=== PATIENT | male | born 1965 | race Caucasian/White ===

== ENCOUNTER 2017-03-11 11:02 | Observation (INO) | payer BC ==
[~2017-03-11] VITALS: Ht 180.3 cm; Wt 107.0 kg
[2017-03-11] MEDS ORDERED: MOBIC PO (11:22)
[2017-03-11] MEDS ORDERED: LISI-725 PO (11:22)
[2017-03-11] MEDS ORDERED: ONDANSETRON INJ 2 MG/ML 2 ML VIAL IV STA (11:38)
[2017-03-11] MEDS ORDERED: SODIUM CHLORIDE 0.9% 1000ML 1,000 ML IV STA (11:38)
--- NOTE | 2017-03-11 11:49 | DIAGNOSTIC IMAGING REPORT ---
CHEST ONE VIEW PORTABLE CLINICAL HISTORY: CHEST PAIN COMPARISON STUDY: No previous studies for comparison. FINDINGS: Note is made of mild to moderate elevation of the right hemidiaphragm. No pneumothorax or pleural effusion is noted. There are suspected cervical ribs. There is borderline cardiomegaly without evidence of pulmonary edema. No consolidation is identified. IMPRESSION: 1. No acute cardiopulmonary findings. 2. Borderline cardiomegaly. 3. Mild to moderate elevation of the right hemidiaphragm. Electronically signed by: Bunny Costa M.D. 03/11/2017 11:48 AM Dictated Date/Time: 03/11/2017 11:47 AM
[2017-03-11 11:52] LABS: BASO % 0.2 %; BASO ABS # 0.02 K/uL (0-0.2); EOS % 0.4 %; EOS ABS # 0.03 K/uL (0-0.5); HEMATOCRIT 39.7 % (42-52); HEMOGLOBIN 13.8 g/dL (14.0-18.0); IG# 0.03 K/uL (0.00-0.02); LYMPH % 15.5 %; LYMPH ABS # 1.26 K/uL (1.2-3.4); MEAN CELL VOLUME 88.4 fL (80-100); MEAN CORPUSCULAR HEMOGLOBIN 30.7 pg (25-34); MEAN CORPUSCULAR HGB CONC 34.8 g/dl (32-36); MEAN PLATELET VOLUME 10.2 fL (7.4-10.4); MONO % 7.6 %; MONO ABS # 0.62 K/uL (0.11-0.59); NEUT % 75.9 %; NEUT ABS # 6.15 K/uL (1.4-6.5); PLATELET COUNT 270 K/uL (130-400); RED CELL DISTRIBUTION WIDTH CV 13.3 % (11.5-14.5); RED CELL DISTRIBUTION WIDTH SD 43.1 fL (36.4-46.3); WHITE BLOOD COUNT 8.11 K/uL (4.8-10.8)
--- NOTE | 2017-03-11 11:54 | EMERGENCY ROOM VISIT NOTE ---
History Report prepared by Ryan: Jean-Paul Pate Under the Supervision of: Dr. Valeriano Dickey M.D. First contact with patient: 11:27 Chief Complaint: VOMITING Stated Complaint: PASSED OUT,VOMITING,CLAMMY,SWEATING Nursing Triage Summary: pt reports he was doing laundry stood up passed out and had some sort of seizure. pt reports when he awoke from passing out he was flailing around brojke out in sweats did not bite tongue no incontinence. was not witnessed. pt reports no hx of seizures. started vomiting after waking. reports head is in "fog" History of Present Illness The patient is a 52 year old male who presents to the Emergency Room with complaints of a resolved syncopal episode that occurred prior to arrival. The patient states he was watching TV and got up to put the blanket away. He reports he became dizzy and lightheaded. The patient notes he fell over and had a seizure like episode. He states he does not remember much of what happen during the spell, and his was in the other room. The patient reports he woke up with sweats, went upstairs, and vomited multiple times. He notes his work schedule fluctuates from night to morning, but he did sleep last night. The patient states he felt normal this morning. He notes he had a similar situation a few months ago, but he did not lose consciousness like today. He reports he has a history of hypertension and takes Lisinopril. The patient notes his dad had an PA. He denies chest pain, fevers, palpitations, losing blood, biting tongue, being incontinent of his urine or stool, cough, using street drugs, smoking, alcohol use, a history of diabetes, a history of seizures , a history of blood clots, and a history of cancer. Source of History: patient Onset: prior to arrival Position: other (global) Quality: other (syncopal episode) Timing: resolved Associated Symptoms: + LOC, No fevers, No cough, No chest pain Note: Denies: palpitations, losing blood, biting tongue, being incontinent of urine or stool, Review of Systems See HPI for pertinent positives & negatives. A total of 10 systems reviewed and were otherwise negative. Past Medical & Surgical Medical Problems: (1) HTN (hypertension) (2) Syncope Old medical records were reviewed. Nurse's notes were reviewed and I agree with. Family History FH: myocardial infarction Social History Smoking Status: Never Smoker Smokeless Tobacco Use: No Alcohol Use: none Drug Use: none Marital Status: Housing Status: lives with significant other Occupation Status: employed Current/Historical Medications Scheduled Lisinopril (Zestril), 20 MG PO HS Scheduled PRN [Mobic ], 5 MG PO UD PRN for Pain Allergies Coded Allergies: Sulfa Antibiotics (Unverified Allergy, Intermediate, STOMACH PAIN, 03/11/17) Physical Exam Vital Signs Date Time Temp Pulse Resp B/P (MAP) Pulse Ox O2 Delivery O2 Flow Rate FiO2 03/11/17 12:51 55 14 159/96 99 Room Air 03/11/17 11:31 99 Room Air 03/11/17 11:17 52 03/11/17 11:08 36.3 55 18 141/88 99 Room Air Physical Exam General: Non-ill appearing middle aged male in no acute distress. HEENT: Normal cephalic atraumatic. Pupils are equal round and reactive to light. Extraocular movements are intact. Oropharynx is pink with moist mucous membranes. No swelling of the mouth lips or tongue. Neck: Supple with a midline trachea. No meningeal signs or stiffness, no JVD or bruits. No Stridor. Chest: Clear to auscultation bilaterally. No wheezes or rhonchi. No increased work of breathing. Heart: Bradycardic in 50s which is baseline for him. Regular Rhythm. Abdomen: Soft nontender, nondistended without rebound guarding or rigidity. Extremities: No cyanosis clubbing or edema. No calf tenderness or assymetry Spine/Back. Non tender to palpation. No CVA tenderness Skin: Good turgor without rashes. Neurologic exam: Cranial nerves two through 12 are intact. Motor and sensation are intact and symmetrical throughout. Medical Decision & Procedures ER Provider Diagnostic Interpretation: Radiology results as stated below per my review and radiologist interpretation: CHEST ONE VIEW PORTABLE CLINICAL HISTORY: CHEST PAIN COMPARISON STUDY: No previous studies for comparison. FINDINGS: Note is made of mild to moderate elevation of the right hemidiaphragm. No pneumothorax or pleural effusion is noted. There are suspected cervical ribs. There is borderline cardiomegaly without evidence of pulmonary edema. No consolidation is identified. IMPRESSION: 1. No acute cardiopulmonary findings. 2. Borderline cardiomegaly. 3. Mild to moderate elevation of the right hemidiaphragm. Electronically signed by: Bunny Costa M.D. 03/11/2017 11:48 AM Dictated Date/Time: 03/11/2017 11:[address] OF THE HEAD WITHOUT CONTRAST CLINICAL HISTORY: Altered mental status. Vomiting. Evaluate for acute intracranial process. COMPARISON STUDY: No previous studies for comparison. CT DOSE: 537.48 mGy.cm TECHNIQUE: Helical axial images of the head were obtained without IV contrast. Automated exposure control was utilized for the study. A dose lowering technique was utilized adhering to the principles of ALARA. FINDINGS: No acute intracranial hemorrhage, midline shift or mass effect is present. Brain volume is normal. Ventricular system is normal. The basilar cisterns are patent. There are no extra-axial collections. Snowden-white differentiation is maintained. There are no findings to suggest acute dural sinus thrombosis or acute territorial infarct. There is no calvarial fracture. Mild polypoid mucosal thickening of the left ethmoid sinuses is noted. There is trace left mastoid fluid. IMPRESSION: No acute intracranial findings. Electronically signed by: Bunny Costa M.D. 03/11/2017 12:27 PM Dictated Date/Time: 03/11/2017 12:24 PM Laboratory Results 03/11/17 11:30 Red Blood Count 4.49, Mean Corpuscular Volume 88.4, Mean Corpuscular Hemoglobin 30.7, Mean Corpuscular Hemoglobin Concent 34.8, Mean Platelet Volume 10.2, Neutrophils (%) (Auto) 75.9, Lymphocytes (%) (Auto) 15.5, Monocytes (%) (Auto) 7.6, Eosinophils (%) (Auto) 0.4, Basophils (%) (Auto) 0.2, Neutrophils # (Auto) 6.15, Lymphocytes # (Auto) 1.26, Monocytes # (Auto) 0.62, Eosinophils # (Auto) 0.03, Basophils # (Auto) 0.02 03/11/17 11:30 Test 03/11/17 11:30 03/11/17 11:45 White Blood Count 8.11 K/uL (4.8-10.8) Red Blood Count 4.49 M/uL (4.7-6.1) Hemoglobin 13.8 g/dL (14.0-18.0) Hematocrit 39.7 % (42-52) Mean Corpuscular Volume 88.4 fL (80-100) Mean Corpuscular Hemoglobin 30.7 pg (25-34) Mean Corpuscular Hemoglobin Concent 34.8 g/dl (32-36) Platelet Count 270 K/uL (130-400) Mean Platelet Volume 10.2 fL (7.4-10.4) Neutrophils (%) (Auto) 75.9 % Lymphocytes (%) (Auto) 15.5 % Monocytes (%) (Auto) 7.6 % Eosinophils (%) (Auto) 0.4 % Basophils (%) (Auto) 0.2 % Neutrophils # (Auto) 6.15 K/uL (1.4-6.5) Lymphocytes # (Auto) 1.26 K/uL (1.2-3.4) Monocytes # (Auto) 0.62 K/uL (0.11-0.59) Eosinophils # (Auto) 0.03 K/uL (0-0.5) Basophils # (Auto) 0.02 K/uL (0-0.2) RDW Standard Deviation 43.1 fL (36.4-46.3) RDW Coefficient of Variation 13.3 % (11.5-14.5) Immature Granulocyte % (Auto) 0.4 % Immature Granulocyte # (Auto) 0.03 K/uL (0.00-0.02) Anion Gap 5.0 mmol/L (3-11) Est Creatinine Clear Calc Drug Dose 107.6 ml/min Estimated GFR () 99.8 Estimated GFR (Non- 86.2 BUN/Creatinine Ratio 16.7 (10-20) Calcium Level 8.5 mg/dl (8.5-10.1) Total Bilirubin 0.4 mg/dl (0.2-1) Direct Bilirubin 0.1 mg/dl (0-0.2) Aspartate Amino Transf (AST/SGOT) 19 U/L (15-37) Alanine Aminotransferase (ALT/SGPT) 39 U/L (12-78) Alkaline Phosphatase 76 U/L (45-117) Total Creatine Kinase 103 U/L (39-308) Creatine Kinase MB 1.3 ng/ml (0.5-3.6) Creatine Kinase MB Ratio 1.3 (0-3.0) Total Protein 7.2 gm/dl (6.4-8.2) Albumin 3.8 gm/dl (3.4-5.0) Lipase 143 U/L (73-393) Thyroid Stimulating Hormone (TSH) 2.000 uIu/ml (0.300-4.500) Bedside Troponin I < 0.030 ng/ml (0-0.045) Laboratory studies as stated above per my review. Medications Administered Medications (Trade) Dose Ordered Sig/Tali Route Start Time Stop Time Status Last Admin Dose Admin Sodium Chloride 1,000 ml @ 999 mls/hr Q1H1M STAT IV 03/11/17 11:38 03/11/17 12:38 DC 03/11/17 11:46 999 MLS/HR Ondansetron HCl (Zofran Inj) 4 mg NOW STAT IV 03/11/17 11:38 03/11/17 11:41 DC 03/11/17 11:45 4 MG Sodium Chloride 1,000 ml @ 100 mls/hr Q10H IV 03/11/17 13:08 04/10/17 13:07 03/11/17 14:32 100 MLS/HR ECG Indication: vomiting Rate (beats per minute): 50 Rhythm: sinus bradycardia Findings: no acute ischemic change, no ectopy, other (normal interval ) Comparison ECG Date: no prior available Change: Patient's electrocardiogram was interpreted by me. ED Course 1129: Past medical records reviewed. The patient was evaluated in room C10, and a complete history and physical examination were performed. 1138: Ordered Zofran Inj 4mg IV, Sodium Chloride 1000 ml @ 999 mls/hr IV 1218: I reevaluated the patient. He has shown signs of relief, but still has mild discomfort. I discussed the treatment plan and test results with the patient. He verbalized agreement of the treatment plan and will be evaluated for further management and care. 1247: I discussed the patient's case with Dr. Garcia, [facility] Hospitalist. He will evaluate the patient for further evaluation and care. Medical Decision Differentials include, but are not limited to; arrhythmia, ACS, Dehydration, Seizure, Syncope, Anemia, Electrolyte or Metabolic abnormality. This patient comes in as described above. He was placed in room C10. He is here for treatment and evaluation of a possible syncopal episode. He was in his usual state of health and he got up and then was on the ground afterwards felt very sick and was nauseated. He is not sure what happened. There is no incontinence or tongue biting. No chest pain or shortness of breath. On exam, he appears comfortable is feeling much better. He does have bradycardia on the monitor was sinus bradycardia in the 50s occasionally dropping down lower in the 40s. He says his heart rate does tend to run in the 60s. IV access established with normal saline. EKG was obtained and shows sinus bradycardia but no acute ischemic changes. CAT scan of his head is unremarkable. No acute electrolyte or metabolic abnormalities. It is possible this could've been a seizure as well although it may be more of a vasovagal episode. Also it is difficult to rule out arrhythmia and I do think he needs to be admitted/ observed for further treatment and evaluation the hospital . I have consulted Dr. Garcia who saw the ER and will admit/observe him for these measures. Medication Reconcilliation Current Medication List: was personally reviewed by me Consults Time Called: 1218 Consulting Physician: Dr. Garcia, [facility] Hospitalist Returned Call: 1247 I discussed the patient's case with Dr. Garcia, [facility] Hospitalist. He will evaluate the patient for further evaluation and care. Impression Primary Impression: Syncope Additional Impression: Bradycardia Scribe Attestation The scribe's documentation has been prepared under my direction and personally reviewed by me in its entirety. I confirm that the note above accurately reflects all work, treatment, procedures, and medical decision making performed by me. Departure Information Dispostion Being Evaluated By Hospitalist Referrals No Doctor, Assigned (PCP) Patient Instructions My [facility] Problem Qualifiers
[2017-03-11 12:03] LABS: ALBUMIN 3.8 gm/dl (3.4-5.0); CALCIUM 8.5 mg/dl (8.5-10.1); POTASSIUM 4.2 mmol/L (3.5-5.1)
[2017-03-11 12:14] LABS: CKMB 1.3 ng/ml (0.5-3.6); TOTAL PROTEIN 7.2 gm/dl (6.4-8.2)
--- NOTE | 2017-03-11 12:28 | DIAGNOSTIC IMAGING REPORT ---
CT OF THE HEAD WITHOUT CONTRAST CLINICAL HISTORY: Altered mental status. Vomiting. Evaluate for acute intracranial process. COMPARISON STUDY: No previous studies for comparison. CT DOSE: 537.48 mGy.cm TECHNIQUE: Helical axial images of the head were obtained without IV contrast. Automated exposure control was utilized for the study. A dose lowering technique was utilized adhering to the principles of ALARA. FINDINGS: No acute intracranial hemorrhage, midline shift or mass effect is present. Brain volume is normal. Ventricular system is normal. The basilar cisterns are patent. There are no extra-axial collections. Snowden-white differentiation is maintained. There are no findings to suggest acute dural sinus thrombosis or acute territorial infarct. There is no calvarial fracture. Mild polypoid mucosal thickening of the left ethmoid sinuses is noted. There is trace left mastoid fluid. IMPRESSION: No acute intracranial findings. Electronically signed by: Bunny Costa M.D. 03/11/2017 12:27 PM Dictated Date/Time: 03/11/2017 12:24 PM
[2017-03-11] MEDS ORDERED: ACETAMINOPHEN 325 MG TAB PO PRN (13:15)
[2017-03-11] MEDS ORDERED: ALUMINUM/MAGNESIUM/SIMETH (MAALOX MAX) 30 ML UDC PO PRN (13:15)
[2017-03-11] MEDS ORDERED: MAGNESIUM HYDROXIDE SUSP 30 ML UDC PO PRN (13:15)
[2017-03-11] MEDS ORDERED: NITROGLYCERIN 0.4 MG SL PER TAB CHARGE SL PRN (13:15)
[2017-03-11] MEDS ORDERED: ONDANSETRON INJ 2 MG/ML 2 ML VIAL IV PRN (13:15)
--- NOTE | 2017-03-11 13:35 | History and Physical ---
History & Physical Date & Time of Service: Mar 11, 2017 at 13:25 Chief Complaint: Passed Out,Vomiting,Clammy,Sweating Primary Care Physician: Jackson Haywood D.O. History of Present Illness Source: family 52-year-old male new to our facility from the [facility]. Presents after having a syncopal episode at home. The patient states he been relatively good health recently with only some mild bifrontal headaches and some chronic low back pain for which she receives epidural injections and takes Mobic. He notices no other change in his health is stamina his bowel habits his appetite The patient was sitting at home arose from a chair to put a blanket in the closet initially upon arising he felt normal he then felt lightheaded to the point where he easily himself to the ground he recalls an event of shaking he then became diaphoretic and nauseated eventually with vomiting. The patient states that he was groggy and disoriented after the event but did not lose consciousness. His is home but in the room she upon hearing the commotion noticed he wasn't acting his normal self was brought to our emergency department where he had an evaluation including a CT head and serology which was unrevealing the only abnormality has on presentation is sinus bradycardia but maintained good blood pressure. 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 Past Medical/Surgical History Medical Problems: (1) HTN (hypertension) Status: Chronic Family History FH: myocardial infarction Social History Smoking Status: Never Smoker Smokeless Tobacco Use: No Drug Use: none Marital Status: Occupational Status: employed Immunizations History of Influenza Vaccine: No History of Tetanus Vaccine?: Yes History of Pneumococcal: No History of Hepatitis B Vaccine: Unknown Allergies Coded Allergies: Sulfa Antibiotics (Unverified Allergy, Intermediate, STOMACH PAIN, 03/11/17) Home Medications Scheduled Lisinopril (Zestril), 20 MG PO HS Scheduled PRN [Mobic ], 5 MG PO UD PRN for Pain Review of Systems ROS: well nourished well developed No double vision blurry vision No problems with speech or swallowing No palpitations, chest pain or pressure No Wheezing or breathing issues No abdominal pain diarrhea or changes in appetite or weight, did have nausea and vomiting No burning urine urine frequency or changes in color No focal joint pain or muscle pain No skin rashes or oral lesions No unusual bruising or bleeding Persistent chronic lower back pain but no numbness or loss of strength No changes in memory or confusion after the event resolved is return to complete intact mentation with during the event had a period of a few bewilderment Physical Exam Vital Signs Date Time Temp Pulse Resp B/P (MAP) Pulse Ox O2 Delivery O2 Flow Rate FiO2 03/11/17 12:51 55 14 159/96 99 Room Air 03/11/17 11:31 99 Room Air 03/11/17 11:17 52 03/11/17 11:08 36.3 55 18 141/88 99 Room Air General Appearance: WD/WN, no apparent distress Head: normocephalic, atraumatic Eyes: normal inspection, PERRL, EOMI, sclerae normal ENT: hearing grossly normal, pharynx normal Respiratory/Chest: chest non-tender, lungs clear, normal breath sounds Cardiovascular: no murmur, + bradycardia Abdomen/GI: normal bowel sounds, non tender, soft Back: no CVA tenderness, + pertinent finding (mild lower back paraspinous muscular tenderness) Extremities/Musculoskelatal: no pedal edema, normal range of motion Neurologic/Psych: alert, oriented x 3 Skin: normal color, warm/dry, no rash Diagnostics Laboratory Results Results Past 24 Hours Test 03/11/17 11:30 03/11/17 11:45 Range/Units White Blood Count 8.11 4.8-10.8 K/uL Red Blood Count 4.49 4.7-6.1 M/uL Hemoglobin 13.8 14.0-18.0 g/dL Hematocrit 39.7 42-52 % Mean Corpuscular Volume 88.4 80-100 fL Mean Corpuscular Hemoglobin 30.7 25-34 pg Mean Corpuscular Hemoglobin Concent 34.8 32-36 g/dl Platelet Count 270 130-400 K/uL Mean Platelet Volume 10.2 7.4-10.4 fL Neutrophils (%) (Auto) 75.9 % Lymphocytes (%) (Auto) 15.5 % Monocytes (%) (Auto) 7.6 % Eosinophils (%) (Auto) 0.4 % Basophils (%) (Auto) 0.2 % Neutrophils # (Auto) 6.15 1.4-6.5 K/uL Lymphocytes # (Auto) 1.26 1.2-3.4 K/uL Monocytes # (Auto) 0.62 0.11-0.59 K/uL Eosinophils # (Auto) 0.03 0-0.5 K/uL Basophils # (Auto) 0.02 0-0.2 K/uL RDW Standard Deviation 43.1 36.4-46.3 fL RDW Coefficient of Variation 13.3 11.5-14.5 % Immature Granulocyte % (Auto) 0.4 % Immature Granulocyte # (Auto) 0.03 0.00-0.02 K/uL Sodium Level 139 136-145 mmol/L Potassium Level 4.2 3.5-5.1 mmol/L Chloride Level 107 98-107 mmol/L Carbon Dioxide Level 27 21-32 mmol/L Anion Gap 5.0 3-11 mmol/L Blood Urea Nitrogen 17 7-18 mg/dl Creatinine 1.00 0.60-1.40 mg/dl Est Creatinine Clear Calc Drug Dose 107.6 ml/min Estimated GFR () 99.8 Estimated GFR (Non- 86.2 BUN/Creatinine Ratio 16.7 10-20 Random Glucose 115 70-99 mg/dl Calcium Level 8.5 8.5-10.1 mg/dl Total Bilirubin 0.4 0.2-1 mg/dl Direct Bilirubin 0.1 0-0.2 mg/dl Aspartate Amino Transf (AST/SGOT) 19 15-37 U/L Alanine Aminotransferase (ALT/SGPT) 39 12-78 U/L Alkaline Phosphatase 76 45-117 U/L Total Creatine Kinase 103 39-308 U/L Creatine Kinase MB 1.3 0.5-3.6 ng/ml Creatine Kinase MB Ratio 1.3 0-3.0 Total Protein 7.2 6.4-8.2 gm/dl Albumin 3.8 3.4-5.0 gm/dl Lipase 143 73-393 U/L Thyroid Stimulating Hormone (TSH) 2.000 0.300-4.500 uIu/ml Bedside Troponin I < 0.030 0-0.045 ng/ml Diagnostic Radiology Labs noted to be normal CXR normal (except elevated right hemidiaphragm) Normal EKG (except bradycardia and isolated inverted T-wave in lead 3) Impression Assessment and Plan 52-year-old male with unexplained syncopal episode at home and bradycardia on presentation to her ER without orthostatic hypotension Syncope. As mentioned I performed orthostatic blood pressure readings in the ER he had only a modest rise of pulse from the 50s to the 60s however blood pressure only when up as he stood up. He claims of been hydrated recently having no other recent illnesses. He is typically in the habit of taking his lisinopril at night prior to going to work. However he is off work this week and still is been taking his lisinopril at night it's unclear whether this could be affecting in the morning today and he had a little bit of more profound lower blood pressure in the time of this event nevertheless his bradycardia is not explained we will have a pending echo troponin series and Lyme titer. His TSH is checked and normal Elevated [id number] glucose we'll check a glucose in the morning and this is elevated we may consider a hemoglobin A1c test or to follow-up with his outpatient provider for further evaluation of high glucose With regard to his hypertension he is hypertensive in the ER will maintain his lisinopril keeping her on at bedtime as if it is exacerbating his symptoms will find out why he is on the monitor DVT prevention is early ambulation Level of Care Telemetry Advanced Directives Existing Advance Directive: Yes Resuscitation Status FULL RESUSCITATION VTE Prophylaxis VTE Risk Assessment Done? Y/N: Yes Risk Level: Moderate Given or contraindicated: Treatment not indicated
[2017-03-11 14:21] VITALS: BP 142/84; PULSE 51; TEMP 36.4; O2SAT 99; Ht 180.3 cm; Wt 107.0 kg
[2017-03-11] MEDS: SODIUM CHLORIDE 0.9% 1000ML 1,000 ML IV SCH (14:32)
[2017-03-11] MEDS ORDERED: IV FLUIDS COMPLETED PRN (15:00)
[2017-03-11] MEDS ORDERED: INFLUENZA ADMINISTRATION CHARGE ONE (16:00)
[2017-03-11] MEDS ORDERED: INFLUENZA VIRUS QUAD VACCINE 0.5 ML SYR IM. ONE (16:00)
--- NOTE | 2017-03-11 16:16 | ECHOCARDIOGRAM REPORT ---
*NOTICE TO RECEIVING DEMOCRAT AGENCY This information is strictly Confidential and protected under [place] law. [place] law prohibits you from making any further disclosure of this information unless further disclosure is expressly permitted by the written consent of the person to whom it pertains or is authorized by law. A general authorization for the release of medical or other information is not sufficient for this purpose. Hospital accepts no responsibility if the information is made available to any other person, INCLUDING THE PATIENT. Interpretation Summary * Name: ALOK CHAVARRIA Study Date: 03/11/2017 03:04 PM BP: 132/78 mmHg * Patient Location: C.2T\S\S242\S\2 HR: 50 * : 1965 (M/d/yyyy) Gender: Male Height: 71 in * Age: 52 yrs Ethnicity: [place] Weight: 236 lb * Ordering Physician: Andrew Garcia * Referring Physician: Self, Referred * Performed By: Sabina Zimmer RCS * * Reason For Study: Syncope * BSA: 2.3 m2 * -- Conclusions -- * The left ventricle is borderline dilated. * There is normal left ventricular wall thickness. * Left ventricular systolic function is normal. * The left atrium is borderline dilated. * Right ventricular systolic pressure is elevated at 30-40mmHg. Procedure Details * A complete two-dimensional transthoracic echocardiogram was performed (2D, M-mode, Doppler and color flow Doppler). Left Ventricle * The left ventricle is borderline dilated. * There is normal left ventricular wall thickness. * Ejection Fraction = 55-60%. * Left ventricular systolic function is normal. * The left ventricular wall motion is normal. Right Ventricle * The right ventricle is normal in size and function. * The right ventricular systolic function is normal as assessed by tricuspid annular plane systolic excursion (TAPSE) (normal >1.5 cm). Atria * The left atrium is borderline dilated. * Right atrial size is normal. Mitral Valve * The mitral valve anatomy is normal. * Significant mitral regurgitation is absent. Tricuspid Valve * The tricuspid valve is not well visualized, but is grossly normal. * There is mild tricuspid regurgitation. * Right ventricular systolic pressure is elevated at 30-40mmHg. Aortic Valve * The aortic valve is normal in structure and function. * The aortic valve is trileaflet. * No hemodynamically significant valvular aortic stenosis. * There is no significant aortic regurgitation. Great Vessels * The aortic root is normal size. Pericardium/Pleural * There is no pericardial effusion. Great Vessels * Normal inferior vena cava diameter and respiratory variation suggests normal central venous pressure. MMode 2D Measurements and Calculations IVSd 1.1 cm IVSs 1.4 cm LVIDd 5.5 cm LVIDs 3.5 cm LVPWd 1.1 cm LVPWs 1.5 cm IVS/LVPW 0.99 FS 36.3 % EDV(Teich) 145.9 ml ESV(Teich) 50.5 ml EF(Teich) 65.4 % EDV(cubed) 164.1 ml ESV(cubed) 42.5 ml EF(cubed) 74.1 % % IVS thick 30.8 % % LVPW thick 38.6 % LV mass(C)d 230.7 grams LV mass(C)dI 102.0 grams/m\S\2 LV mass(C)s 179.7 grams LV mass(C)sI 79.4 grams/m\S\2 SV(Teich) 95.4 ml SI(Teich) 42.2 ml/m\S\2 SV(cubed) 121.6 ml SI(cubed) 53.8 ml/m\S\2 Ao root diam 3.7 cm Ao root area 10.7 cm\S\2 ACS 1.7 cm LA dimension 4.1 cm asc Aorta Diam 3.2 cm LA/Ao 1.1 EDV(sp4-el) 127.0 ml ESV(sp4-el) 61.0 ml EF(sp4-el) 52.0 % EDV(sp2-el) 168.0 ml ESV(sp2-el) 82.0 ml EF(sp2-el) 51.2 % SV(sp4-el) 66.0 ml SI(sp4-el) 29.2 ml/m\S\2 SV(sp2-el) 86.0 ml SI(sp2-el) 38.0 ml/m\S\2 Doppler Measurements and Calculations MV E max sathish 104.0 cm/sec MV A max sathish 69.5 cm/sec MV E/A 1.5 MV P1/2t max sathish 119.3 cm/sec MV P1/2t 48.7 msec MVA(P1/2t) 4.5 cm\S\2 MV dec slope 717.5 cm/sec\S\2 MV dec time 0.30 sec Ao V2 max 143.7 cm/sec Ao max PG 8.3 mmHg Ao max PG (full) 3.1 mmHg LV V1 max PG 5.1 mmHg LV V1 max 113.1 cm/sec PA V2 max 125.5 cm/sec PA max PG 6.3 mmHg PI max sathish 190.2 cm/sec PI max PG 14.5 mmHg PI dec slope 179.3 cm/sec\S\2 PI P1/2t 310.7 msec TR max sathish 280.8 cm/sec
[2017-03-11 16:21] VITALS: BP 136/79; PULSE 54; TEMP 36.5; O2SAT 98
[2017-03-11] MEDS ORDERED: IBUPROFEN 800 MG TAB PO PRN (17:45)
[2017-03-11] MEDS ORDERED: NURSING VERBAL MED ORDER ONE ×2 (17:45)
[2017-03-11 19:56] VITALS: BP 130/77; PULSE 53; TEMP 37.1; O2SAT 97
[2017-03-11] MEDS ORDERED: LISINOPRIL 20 MG TAB PO SCH (21:00)
[2017-03-11 23:50] VITALS: BP 127/74; PULSE 51; TEMP 36.9; O2SAT 96
[2017-03-12] MEDS: SODIUM CHLORIDE 0.9% 1000ML 1,000 ML IV SCH ×2 (00:20→09:08)
[2017-03-12 02:59] LABS: HEMATOCRIT 36.1 % (42-52); HEMOGLOBIN 12.1 g/dL (14.0-18.0); MEAN CELL VOLUME 88.3 fL (80-100); MEAN CORPUSCULAR HEMOGLOBIN 29.6 pg (25-34); MEAN CORPUSCULAR HGB CONC 33.5 g/dl (32-36); MEAN PLATELET VOLUME 9.6 fL (7.4-10.4); PLATELET COUNT 240 K/uL (130-400); RED CELL DISTRIBUTION WIDTH CV 13.4 % (11.5-14.5); RED CELL DISTRIBUTION WIDTH SD 43.2 fL (36.4-46.3); WHITE BLOOD COUNT 6.75 K/uL (4.8-10.8)
[2017-03-12 03:20] LABS: CALCIUM 7.9 mg/dl (8.5-10.1); CREATININE 0.87 mg/dl (0.60-1.40); POTASSIUM 3.9 mmol/L (3.5-5.1)
[2017-03-12 03:35] VITALS: BP 123/75; PULSE 50; TEMP 36.7; O2SAT 96
[2017-03-12 07:40] VITALS: BP 121/79; PULSE 49; TEMP 37; O2SAT 97
--- NOTE | 2017-03-12 10:33 | Cardiology Consultation ---
Cardiology Consultation Date of Consultation: Mar 12, 2017. Requesting Physician: Ella Reason for Consultation: Syncope Pt evaluation today including: conversation w/ patient, physical exam, chart review, lab review, review of studies, review of inpatient medication list, conversation w/ attending History of Present Illness Patient is a 52-year-old gentleman without a significant past cardiac history who experienced an episode of syncope yesterday. Patient stated that he was feeling well early in the morning when he got up from a chair. He was walking across the room and returning to his chair when he suddenly felt dizzy and lightheaded. He found himself on the floor he did report a sense of tonic clonic limb movement. He was assisted by his at that point and began to experience symptoms of nausea and diffuse diaphoresis. Proceeded to the bathroom where he began vomiting. Based on the nature of the symptoms he proceeded to [facility] for an evaluation. He continued to have significant vomiting until he arrived at the [facility] and was administered anti medics. Shortly thereafter symptoms resolved. This morning he is feeling well. He states that he has a very mild frontal headache. He has no additional dizziness or lightheadedness. He has not experienced any nausea. He has no diaphoresis currently. During yesterday's episode he did not report any symptoms of palpitations or rapid heartbeats. He had eaten breakfast approximately 0.5 hour before the event. He has not been feeling poorly recently. He has not had any viral symptoms. Patient states that he has passed out approximately 2 times previously. One time involve not eating in donating blood. The other was not well characterized by the patient. 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 He can also shovel snow and perform routine activity without symptoms. He has not report exertional chest pain or breathing difficulty. He generally is not aware of any palpitations or racing heartbeats. Past Medical/Surgical History Hypertension Low back pain Past surgical history: Tonsillectomy Vasectomy Knee surgery Cholecystectomy Family History FH: myocardial infarction Brother with lymphoma. Father with multiple medical problems including coronary disease, hypertension and diabetes Social History Smoking Status: Never Smoker History of Alcohol Use: No Currently works for the [employer] He does have occasional headaches. He has some sinus congestion. He did complain of some" twitching" involving the right eye which has been more frequent lately All Other Systems: Reviewed and Negative Allergies Coded Allergies: Sulfa Antibiotics (Unverified Allergy, Intermediate, STOMACH PAIN, 03/11/17) Medications Current Inpatient Medications Medications (Trade) Dose Ordered Sig/Tali Route Start Time Stop Time Status Last Admin Dose Admin Sodium Chloride 1,000 ml @ 100 mls/hr Q10H IV 03/11/17 13:08 04/10/17 13:07 03/12/17 00:20 100 MLS/HR Acetaminophen (Tylenol Tab) 650 mg Q4H PRN PO 03/11/17 13:15 04/10/17 13:14 03/11/17 16:56 650 MG Al Hydrox/Mg Hydrox/Simethicone (Maalox Max Susp) 15 ml Q4H PRN PO 03/11/17 13:15 04/10/17 13:14 Magnesium Hydroxide (Milk Of Magnesia Susp) 30 ml Q12H PRN PO 03/11/17 13:15 04/10/17 13:14 Ondansetron HCl (Zofran Inj) 4 mg Q6H PRN IV 03/11/17 13:15 04/10/17 13:14 Nitroglycerin (Nitrostat Tab) 0.4 mg UD PRN SL 03/11/17 13:15 04/10/17 13:14 Lisinopril (Zestril Tab) 20 mg HS PO 03/11/17 21:00 04/10/17 20:59 03/11/17 20:58 20 MG Miscellaneous (Iv Fluids Completed) 1 ea PRN PRN N/A 03/11/17 15:00 03/11/18 14:59 Ibuprofen (Motrin Tab) 800 mg Q6H PRN PO 03/11/17 17:45 04/10/17 17:44 Miscellaneous Information (Order Awaiting Action) 1 ea HS N/A 03/11/17 21:00 04/10/17 20:59 Physical Exam Vital Signs Past 12 Hours Date Time Temp Pulse Resp B/P (MAP) Pulse Ox O2 Delivery O2 Flow Rate FiO2 03/12/17 08:00 Room Air 03/12/17 07:40 37.0 49 20 121/79 (93) 97 Room Air 03/12/17 04:00 Room Air 03/12/17 03:35 36.7 50 18 123/75 (91) 96 Room Air 03/11/17 23:59 Room Air 03/11/17 23:50 36.9 51 18 127/74 (91) 96 Room Air The patient is alert and oriented. Mood and affect appeared normal. He answered all questions appropriately. HEENT: Pupils are equal and reactive to light and accommodation. Extraocular movements are intact. The sclerae are anicteric. Neuro: Cranial nerves intact Neck: Patient's neck is supple. He has palpable carotid pulses bilaterally without bruits on auscultation. There is no evidence of jugular venous distention. The thyroid is not enlarged. Lungs: Clear to auscultation bilaterally. He has good air movement without use of accessory muscles. No rales wheezes or rhonchi. Cardiac: Heart demonstrates a regular rate and rhythm. Normal S1 and S2. No murmurs on examination. Pulses: The patient has palpable radial pulses bilaterally that are equal in intensity Extremities: There was no evidence of hypoperfusion. There is no cyanosis or clubbing. There is no edema. Skin: I did not appreciate any rashes on examination today. Data Laboratory Results: Last 24 Hours Test 03/11/17 11:30 03/11/17 11:45 03/11/17 19:02 03/12/17 02:52 White Blood Count 8.11 K/uL 6.75 K/uL Red Blood Count 4.49 M/uL 4.09 M/uL Hemoglobin 13.8 g/dL 12.1 g/dL Hematocrit 39.7 % 36.1 % Mean Corpuscular Volume 88.4 fL 88.3 fL Mean Corpuscular Hemoglobin 30.7 pg 29.6 pg Mean Corpuscular Hemoglobin Concent 34.8 g/dl 33.5 g/dl Platelet Count 270 K/uL 240 K/uL Mean Platelet Volume 10.2 fL 9.6 fL Neutrophils (%) (Auto) 75.9 % Lymphocytes (%) (Auto) 15.5 % Monocytes (%) (Auto) 7.6 % Eosinophils (%) (Auto) 0.4 % Basophils (%) (Auto) 0.2 % Neutrophils # (Auto) 6.15 K/uL Lymphocytes # (Auto) 1.26 K/uL Monocytes # (Auto) 0.62 K/uL Eosinophils # (Auto) 0.03 K/uL Basophils # (Auto) 0.02 K/uL RDW Standard Deviation 43.1 fL 43.2 fL RDW Coefficient of Variation 13.3 % 13.4 % Immature Granulocyte % (Auto) 0.4 % Immature Granulocyte # (Auto) 0.03 K/uL Sodium Level 139 mmol/L 140 mmol/L Potassium Level 4.2 mmol/L 3.9 mmol/L Chloride Level 107 mmol/L 110 mmol/L Carbon Dioxide Level 27 mmol/L 26 mmol/L Anion Gap 5.0 mmol/L 4.0 mmol/L Blood Urea Nitrogen 17 mg/dl 14 mg/dl Creatinine 1.00 mg/dl 0.87 mg/dl Est Creatinine Clear Calc Drug Dose 107.6 ml/min 123.6 ml/min Estimated GFR () 99.8 115.0 Estimated GFR (Non- 86.2 99.2 BUN/Creatinine Ratio 16.7 16.7 Random Glucose 115 mg/dl 94 mg/dl Calcium Level 8.5 mg/dl 7.9 mg/dl Total Bilirubin 0.4 mg/dl Direct Bilirubin 0.1 mg/dl Aspartate Amino Transf (AST/SGOT) 19 U/L Alanine Aminotransferase (ALT/SGPT) 39 U/L Alkaline Phosphatase 76 U/L Total Creatine Kinase 103 U/L Creatine Kinase MB 1.3 ng/ml Creatine Kinase MB Ratio 1.3 Total Protein 7.2 gm/dl Albumin 3.8 gm/dl Lipase 143 U/L Thyroid Stimulating Hormone (TSH) 2.000 uIu/ml Lyme Disease IgG Antibody NEG NEG Bedside Troponin I < 0.030 ng/ml Troponin I < 0.015 ng/ml < 0.015 ng/ml Magnesium Level 1.8 mg/dl Imaging: Head CT and chest x-ray were unremarkable EKG: Sinus bradycardia Telemetry reviewed: Sinus bradycardia Echocardiogram performed 03/11/2017: Preserved LV systolic function. No significant valvular disease. Assessment & Plan 1. Syncope: Based on the symptoms described this is most likely vagally mediated. Patient's cardiac exam so far has been unremarkable. He does have a mild bradycardia, but I doubt that the episode in question was cause exclusively by an arrhythmia. This assumption is based on the prominent symptoms he experienced afterwards. He had symptoms consistent with very high vagal tone. I doubt that he would have felt so poorly this was a simple rhythm abnormality. Additionally, he has had syncope in the past which was likely vagally mediated. With his normal echocardiogram in otherwise good health his prognosis is quite good. I would not perform any additional testing in the absence of recurrent symptoms. 2. Bradycardia: He appears to be asymptomatic relative to his low heart rates. He recalls being told that he has a low heart rate in the past and generally recognizes a pulse of 50 is normal for him. While this is slightly unusual and in the future may progress to some form of chronotropic incompetence , does not require any additional evaluation or treatment at this time. 3. Elevated pulmonary pressures: These are estimated based on his tricuspid regurgitation. He has not have obvious heart failure, it is possible he could have occult sleep apnea. He does have some sleep disturbance due to his occupation which requires frequent changes in his sleep schedule.
[2017-03-12 12:34] VITALS: BP_SYST 133; BP_SYST 142; BP_DIAS 76; BP_DIAS 79; BP_DIAS 86; PULSE 62; PULSE 65; PULSE 75; TEMP 36.9; O2SAT 96
--- NOTE | 2017-03-12 13:55 | Discharge Instructions ---
Discharge Instructions Date of Service Mar 12, 2017. Admission Reason for Admission: Syncope Discharge Discharge Diagnosis / Problem: Syncope Discharge Goals Goal(s): Decrease discomfort, Diagnostic testing, Therapeutic intervention Activity Recommendations Activity Limitations: as noted below Exercise/Sports Limitations: as tolerated Driving or Machine Use: Do not drive or operate heavy machinery until follow up with primary care provider . Instructions / Follow-Up Instructions / Follow-Up You were admitted to the hospital for overnight observation following a syncopal episode (fainting). Your head CT scan was negative. You echocardiogram, or ultrasound of the heart, did not show any acute abnormalities. You were found to be bradycardic (slow heart rate), but this alone does not account for your other associated symptoms with the syncopal episode. Your blood pressure has remained stable in different positions. Your blood sugar was normal. You were evaluated by cardiology, and it is believed that this episode is likely vasovagal and benign. As your work up here has been negative, you are medically stable for discharge. Medications: *No changes have been made to your medications. Recommendations: *Do not return to work until you follow up with your primary care provider. *Monitor for further episodes of dizziness, lightheadedness, and loss of consciousness. Note if there are any triggering factors (stress, fear, dehydration, standing for long periods of time, fatigue, feeling overheated) and try to avoid those triggers. If you begin to feel dizzy/lightheaded, hot, sweaty, clammy, nauseous, suddenly weak/tired, or experience tunnel vision, try to sit down, as these may be warning symptoms of another syncopal episode. Follow up: *Please call your primary care provider to set up a follow up appointment within the next few days. Please seek medical attention if you experience fevers, chills, sweats, worsening dizziness/lightheadedness, loss of consciousness, chest pain, shortness of breath, nausea, vomiting, numbness or tingling. Current Hospital Diet Patient's current hospital diet: Regular Diet Discharge Diet Recommended Diet: Regular Diet Procedures Procedures Performed: Echocardiogram Pending Studies Studies pending at discharge: no Work Instructions Return To Work: after follow-up (do not return to work until follow up until cleared by primary care provider) Medical Emergencies . Who to Call and When: Medical Emergencies: If at any time you feel your situation is an emergency, please call 911 immediately. . Non-Emergent Contact Non-Emergency issues call your: Primary Care Provider Call Non-Emergent contact if: you have a fever, you have any medication questions . Past History Medical & Surgical History: (1) Syncope . "Provider Documentation" section prepared by Sherin Cole. . VTE Core Measure Inpt VTE Proph given/why not?: Treatment not indicated
--- NOTE | 2017-03-12 14:19 | Discharge Summary ---
Discharge Summary Date of Service Mar 12, 2017. Discharge Summary Admission Date: Mar 11, 2017 at 13:14 Discharge Date: Mar 12, 2017 Discharge Disposition: Home Principal Diagnosis: Syncope Problems/Secondary Diagnoses: HTN, bradycardia, chronic back pain Immunizations: Have You Had Influenza Vaccine: No History of Tetanus Vaccine?: Yes History of Pneumococcal: No History of Hepatitis B Vaccine: Unknown Procedures: Echocardiogram: Interpretation Summary * Name: ALOK CHAVARRIA Study Date: 03/11/2017 03:04 PM BP: 132/ 78 mmHg * Patient Location: [facility]\S\S242\S\2 HR: 50 * : 1965 (M/d/yyyy) Gender: Male Height: 71 in * Age: 52 yrs Ethnicity: [place] Weight: 236 lb * Ordering Physician: Andrew Garcia * Referring Physician: Self, Referred * Performed By: Sabina Zimmer RCS * * Reason For Study: Syncope * BSA: 2.3 m2 * -- Conclusions -- * The left ventricle is borderline dilated. * There is normal left ventricular wall thickness. * Left ventricular systolic function is normal. * The left atrium is borderline dilated. * Right ventricular systolic pressure is elevated at 30-40mmHg. Procedure Details * A complete two-dimensional transthoracic echocardiogram was performed (2D, M-mode, Doppler and color flow Doppler). Left Ventricle * The left ventricle is borderline dilated. * There is normal left ventricular wall thickness. * Ejection Fraction = 55-60%. * Left ventricular systolic function is normal. * The left ventricular wall motion is normal. Right Ventricle * The right ventricle is normal in size and function. * The right ventricular systolic function is normal as assessed by tricuspid annular plane systolic excursion (TAPSE) (normal >1.5 cm). Atria * The left atrium is borderline dilated. * Right atrial size is normal. Mitral Valve * The mitral valve anatomy is normal. * Significant mitral regurgitation is absent. Tricuspid Valve * The tricuspid valve is not well visualized, but is grossly normal. * There is mild tricuspid regurgitation. * Right ventricular systolic pressure is elevated at 30-40mmHg. Aortic Valve * The aortic valve is normal in structure and function. * The aortic valve is trileaflet. * No hemodynamically significant valvular aortic stenosis. * There is no significant aortic regurgitation. Great Vessels * The aortic root is normal size. Pericardium/Pleural * There is no pericardial effusion. Great Vessels * Normal inferior vena cava diameter and respiratory variation suggests normal central venous pressure. CT OF THE HEAD WITHOUT CONTRAST CLINICAL HISTORY: Altered mental status. Vomiting. Evaluate for acute intracranial process. COMPARISON STUDY: No previous studies for comparison. CT DOSE: 537.48 mGy.cm TECHNIQUE: Helical axial images of the head were obtained without IV contrast. Automated exposure control was utilized for the study. A dose lowering technique was utilized adhering to the principles of ALARA. FINDINGS: No acute intracranial hemorrhage, midline shift or mass effect is present. Brain volume is normal. Ventricular system is normal. The basilar cisterns are patent. There are no extra-axial collections. Snowden-white differentiation is maintained. There are no findings to suggest acute dural sinus thrombosis or acute territorial infarct. There is no calvarial fracture. Mild polypoid mucosal thickening of the left ethmoid sinuses is noted. There is trace left mastoid fluid. IMPRESSION: No acute intracranial findings. Consultations: Cardiology Medication Reconciliation Continued Medications: Lisinopril (Zestril) 20 Mg Tab 20 MG PO HS [Mobic ] () 5 MG PO UD PRN for Pain Discharge Exam The patient reports feeling well. He has not had any further dizziness, lightheadedness, or syncope. He notes some mild sinus pressure but otherwise denies complaints. 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 Agreed to not return to work until he sees his PCP. This is his 3rd syncopal event. His other 2 episodes were caused by giving blood after fasting and also becoming overheated. Constitutional: No fever, No chills, No sweats Eyes: No worsening of vision, No eye pain, No diplopia ENT: No hearing loss, No nasal symptoms, No trouble swallowing Respiratory: No cough, No wheezing, No shortness of breath Cardiovascular: No chest pain, No claudication, No palpitations Abdomen: No pain, No nausea, No vomiting Musculoskeletal: No joint pain, No muscle pain, No swelling Genitourinary - Male: No dysuria, No urinary retention, No hematuria Neurologic: No paralysis, No weakness, No numbness/tingling Integumentary: No rash, No itch, No color change General appearance: +Obese. Well-developed, well-nourished, no apparent distress Head: Normocephalic, atraumatic Eyes: Normal inspection, PERRL, EOMI ENT: Normal ENT inspection, hearing grossly normal, pharynx normal Neck: Supple, no JVD, trachea midline Respiratory/Chest: Lungs clear to auscultation, normal breath sounds, no respiratory distress Cardiovascular: Regular rate & rhythm, no gallop, no murmur Abdomen/GI: Normal bowel sounds, non-tender, soft Extremities/Musculoskeletal: Normal inspection, no calf tenderness, no pedal edema Neurological/Psych: Alert, normal mood/affect, oriented x 3 Skin: Normal color, warm/dry, no rash Hospital Course 52 y/o male with a history of HTN and chronic back pain 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 The patient had been sitting on his cough, then stood up to a fold a blanket and return it to a drawer. While walking back to the cough, he developed dizziness, lightheadedness, and sweats. He believes that he did lose consciousness, but he was able to safely lower himself to the couch before fainting. He woke up feeling groggy and somewhat disoriented, then nauseous and weak. He did vomit. The patient has had 2 previous syncopal episodes. Syncope -Admit to telemetry for observation. No acute events overnight. Pt in sinus rhythm/sinus bradycardia with HR 50s-70s -Head CT negative for acute disease -CXR no acute disease -EKG no ischemic changes -Troponin negative x 3 -Echo shows LVEF of 55-60%. No regional wall motion abnormalities. Left ventricle and left atrium borderline dilated. Right ventricular systolic pressure elevated. -Cardiology consulted, appreciate recs: Episode likely vasovagal. His symptoms immediately before and after are unlikely to be caused by bradycardia alone, and it seems that HR of 50s is normal for him per pt report. His symptoms suggest very high vagal tone. Do not recommend further testing/ intervention -Orthostatics negative -Lyme negative -Glucose WNL -TSH WNL HTN--stable -Continue lisinopril 20 mg PO qd Bradycardia--mild, may be at baseline, HR mostly 50s-60s Back pain -Mobic prn Code Status -Level I, FULL RESUSCITATION STATUS Total Time Spent: Greater than 30 minutes This includes examination of the patient, discharge planning, medication reconciliation, and communication with other providers. Discharge Instructions Please refer to the electronic Patient Visit Report (Discharge Instructions) for additional information. Follow-Up Pt and family concerned about returning to potentially dangerous work environment (high voltage, machinery, heights/climbing) by himself during film processing shift supervisor. Instructed to not return to work until follows up with PCP Additional Copies To Jackson Haywood D.O.
[2017-03-12 14:35] VITALS: BP 133/86; PULSE 75; TEMP 36.9; O2SAT 96
== END 2017-03-12 14:52 | disposition home or self-care (01) ==
LOC: C.EDB 11:05 → C.2T 13:14 → ENRESERV 13:42
PROVIDERS: ADMIT Internal Medicine; ATTEND Hospitalist
DX: R42 Dizziness and giddiness (principal); R00.1 Bradycardia, unspecified; I10 Essential (primary) hypertension; Z82.49 Family history of ischemic heart disease and other diseases of the circulatory system; Z88.2 Allergy status to sulfonamides